=== PATIENT | male | born 1960 | race Caucasian/White ===

== ENCOUNTER → 2023-02-06 | Outpatient (CLI) | payer BC, OTHER ==
[~2023-02-06] MED LIST: ASPIRIN CHEWABL81 MG PO; FLOMAX0.4 MG PO; PERCOCET 325 MG1 TA2 PO; PREDNISONE20 M1 PO; ZOFRAN ODT4 MG SL
[2023-02-06 17:53] LABS: BASO # 0.1 10*3/uL (0.0-0.1); BASO % 0.8 % (0.0-1.0); EOS # 0.4 10*3/uL (0.0-0.4); EOS % 3.5 % (1.0-4.0); HEMATOCRIT 47.7 % (42.0-52.0); LYMPH # 3.6 10*3/uL (1.3-4.4); LYMPH % 33.3 % (27.0-41.0); MEAN CORPUSCULAR HGB 31.8 pg (27.0-31.0); MEAN CORPUSCULAR HGB CONC 36.5 g/dl (33.0-37.0); MEAN PLATELET VOLUME 11.3 fl (9.6-12.3); MONO # 0.6 10*3/uL (0.1-1.0); MONO % 5.8 % (3.0-9.0); NEUT # 6.1 10*3/uL (2.3-7.9); NEUT % 56.2 % (47.0-73.0); PLATELET COUNT AUTOMATED 290 10*3/uL (130-400); RED BLOOD COUNT 5.48 10*6/uL (4.50-5.90); RED CELL DISTRI WIDTH 11.7 % (0-14.5); WHITE BLOOD COUNT 10.8 10*3/uL (4.8-10.8)
[2023-02-06 18:24] LABS: ALKALINE PHOSPHATASE 138 U/L (46-116); BUN 18 mg/dl (9-23); CHLORIDE 94 mmol/L (98-107); POTASSIUM 4.6 mmol/L (3.4-5.1); SGPT/ALT 56 U/L (5-49); TOTAL PROTEIN 8.2 gm/dL (6.0-8.0)
== END | disposition home or self-care (01) ==
LOC: LAB 17:20
PROVIDERS: ATTEND Family Medicine
DX: R35.89 Other polyuria (principal); R35.1 Nocturia; R63.4 Abnormal weight loss